=== PATIENT | female | born 1965 | race Caucasian/White ===

== ENCOUNTER → 2016-10-19 | Outpatient (CLI) | payer OTHER ==
--- NOTE | 2016-10-19 11:23 | Diagnostic Imaging Report ---
PROCEDURE: US Gallbladder. TECHNIQUE: Multiple real-time grayscale images were obtained over the right upper quadrant in various projections. INDICATION: Upper abdominal pain. FINDINGS: The visualized portions of the pancreas appear unremarkable. The liver is mildly enlarged measuring 20 cm in craniocaudal diagonal measurement. The liver is hyperechoic and attenuates the ultrasound beam, suggestive of hepatic steatosis. Hepatopetal flow in the portal vein is seen. No focal mass is identified. The intrahepatic bile ducts do not appear to be dilated. The CBD is obscured. The gallbladder demonstrates no stones or from wall thickening. No pericholecystic fluid. The sonographic Gee sinus was reportedly negative. The right kidney is 11.6 cm in length with no hydronephrosis or focal lesion. No fluid collection in the upper right abdomen is seen. IMPRESSION: Enlarged fatty liver. Dictated by: Dictated on workstation # [id number]
== END ==
LOC: RAD 08:41
PROVIDERS: ATTEND Nurse Practitioner Family
DX: K21.9 Gastro-esophageal reflux disease without esophagitis (principal); K76.0 Fatty (change of) liver, not elsewhere classified; R16.0 Hepatomegaly, not elsewhere classified
CPT/HCPCS: 76705

== ENCOUNTER → 2017-07-22 | Outpatient (CLI) | payer SELFPAY | LOC: RAD 14:19 | PROVIDERS: ATTEND Nurse Practitioner | DX: Z53.8 Procedure and treatment not carried out for other reasons (principal); M75.101 Unspecified rotator cuff tear or rupture of right shoulder, not specified as traumatic ==